=== PATIENT | female | born 1995 | race Hispanic/Latino ===

== ENCOUNTER 2016-10-21 06:34 | Day surgery (SDC) | payer BC ==
[2016-10-21 07:51] VITALS: RESP 20; TEMP 97; O2SAT 99
[2016-10-21] MEDS ORDERED: Propofol 10 mg/ml Inj (20 ML) ONE ×3 (08:21→08:39)
[2016-10-21] MEDS ORDERED: Midazolam 2 MG/2 ML VIAL ONE (08:21)
[2016-10-21 09:36] VITALS: BP 106/68; PULSE 74
== END 2016-10-21 09:45 | disposition home or self-care (01) ==
LOC: C.ENDO 06:34
PROVIDERS: ATTEND Internal Medicine Gastroenterology
DX: K62.5 Hemorrhage of anus and rectum (principal); R19.4 Change in bowel habit; K62.1 Rectal polyp; R10.9 Unspecified abdominal pain
CPT/HCPCS: 43239; 45385; 84703; 88305; 88313; 88342; J2250; J2704